=== PATIENT | female | born 1935 | race Caucasian/White ===

== ENCOUNTER 2020-11-19 15:59 | Outpatient (CLI) | payer MEDICARE, SELFPAY ==
--- NOTE | ~2020-11-19 | XR_ITS ---
EXAMINATION: XR shoulder LT min 2V DATE: 11/19/2020 16:39 INDICATION: Left shoulder pain. TECHNIQUE: 4 views of left shoulder were obtained. COMPARISON: Chest 2 views 03/05/2016 FINDINGS: Bone alignment is normal. No acute fracture. There is moderate osteoarthritis of glenohumer al joint and acromioclavicular joint. The visualized portions of the left lung demonstrate peripheral airspace and reticular opacities. IMPRESSION: 1. Polyarticular osteoarthritis. 2. Worsened lung disease, which may be pneumonia or chronic interstitial lung disease. Reviewed, dictated and finalized at location B. OTICS PROSTHETICS TECHNICIAN IMPRESSION: 1. Polyarticular osteoarthritis. 2. Worsened lung disease, which may be pneumonia or chronic interstitial lung d isease.
--- NOTE | ~2020-11-19 | XR_ITS ---
EXAMINATION: XR shoulder RT min 2V DATE: 11/19/2020 16:40 INDICATION: Right shoulder pain. TECHNIQUE: 4 views of right shoulder were obtained. COMPARISON: Chest 2 views 03/05/2016 FINDINGS: Bone alignment is normal. No fracture. There is moderate osteoarthritis of glenohumeral aleksey nt and acromioclavicular joint. The visualized portions of the right lung demonstrate peripheral reti cular and airspace opacities. IMPRESSION: 1. Polyarticular osteoarthritis. 2. Worsened lung disease, which may be pneumonia or chronic interstitial lung disease. Reviewed, dictated and finalized at location B. MARKETING ANALYST IMPRESSION: 1. Polyarticular osteoarthritis. 2. Worsened lung disease, which may be pneumonia or chronic interstitial lung d isease.
[2020-11-19 16:29] LABS: Basophils Absolute Auto 0.1 K/mm3 (0.0-0.1); Basophils Percent Auto 0.6 % (0.2-1.2); Eosinophils Absolute Auto 0.5 K/mm3 (0-0.3); Eosinophils Percent Auto 5.4 % (0-4.4); Hematocrit 39.1 % (37.0-47.0); Hemoglobin 13.2 g/dL (12.0-15.0); Immature Granulocyte Absolute 0.05 K/mm3 (0.00-0.031); Immature Granulocyte Percent A 0.5 % (0-0.5); Lymphocytes Absolute Auto 2.59 K/mm3 (0.9-3.2); Lymphocytes Percent Auto 27.6 % (18.3-44.2); Mean Corpuscular HGB Conc 33.8 g/dl (32-36); Mean Corpuscular Hemoglobin 29.5 pg (26-34); Mean Corpuscular Volume 87.3 fl (80-100); Mean Platelet Volume 9.1 fl (7.4-10.4); Monocytes Percent Auto 10.8 % (2.6-8.5); Neutrophils Absolute Auto 5.2 K/mm3 (1.3-6.7); Neutrophils Percent Auto 55.1 % (45.5-73.1); Platelet Count Result 351 k/mm3 (150-375); Red Blood Count 4.48 M/mm3 (4.2-5.4); Red Cell Distribution Width 13.6 % (11.5-14.5); White Blood Count 9.4 K/mm3 (4.5-10.0)
[2020-11-19 16:43] LABS: Anion Gap 9 mmol/L (8-16); Blood Urea Nitrogen 16 mg/dL (7-17); CRP 3.5 mg/dL (<1.0); Calcium 9.6 mg/dL (8.4-10.2); Carbon Dioxide 30 mmol/L (22-30); Chloride 93 mmol/L (98-107); Estimated Glomerular Filt Rate > 60; Glucose 103 mg/dL (65-105); Potassium 4.6 mmol/L (3.4-5.0); Sodium 132 mmol/L (137-145)
[2020-11-19 16:44] LABS: Rheumatoid Factor < 12.0 IU/ML (<12)
[2020-11-19 16:52] LABS: Erythrocyte Sedimentation Rate 30 mm/hr (0-20)
[2020-11-25 09:26] LABS: Anti Cyclic Citrullinated Pept <16 Units (<20)
== END 2020-11-19 16:00 | disposition home or self-care (01) ==
LOC: ANHLAB 16:07
PROVIDERS: Family Provider Internal Medicine; PCP Internal Medicine; Visit Provider Internal Medicine
DX: M25.531 Pain in right wrist (principal); M25.532 Pain in left wrist; M54.2 Cervicalgia; M89.49 Other hypertrophic osteoarthropathy, multiple sites; M19.011 Primary osteoarthritis, right shoulder; J98.4 Other disorders of lung; M19.012 Primary osteoarthritis, left shoulder
CPT/HCPCS: 36415; 73030; 80048; 85025; 85652; 86140; 86200; 86430

== ENCOUNTER 2020-11-21 16:16 | Outpatient (CLI) | payer MEDICARE, SELFPAY ==
--- NOTE | ~2020-11-21 | XR_ITS ---
EXAMINATION: XR chest 2V DATE: 11/21/2020 16:47 INDICATION: Abnormal shoulder radiographs demonstrating lung disease on 11/19/2020 TECHNIQUE: PA and lateral views of the chest are obtained. COMPARISON: 03/15/2016, 11/19/2020 FINDINGS: There are reticular and airspace opacities throughout the lungs with more focal consolidati on seen in the lung bases. There are small pleural effusions. No pneumothorax is identified. Cardiome gerri is noted. There is moderate thoracic spondylosis. IMPRESSION: 1. Diffuse lung disease which could reflect pneumonia and/or chronic interstitial lung disease and/or atelectasis. 2. Small pleural effusions. Reviewed, dictated and finalized at location A. OYEE SERVICE OFFICER IMPRESSION: 1. Diffuse lung disease which could reflect pneumonia and/or chronic interstiti al lung disease and/or atelectasis. 2. Small pleural effusions.
== END 2020-11-21 16:17 | disposition home or self-care (01) ==
PROVIDERS: Family Provider Internal Medicine; PCP Internal Medicine; Visit Provider Internal Medicine
DX: R91.8 Other nonspecific abnormal finding of lung field (principal); J90 Pleural effusion, not elsewhere classified
CPT/HCPCS: 71046

== ENCOUNTER 2020-11-27 14:40 | Outpatient (CLI) | payer MEDICARE, SELFPAY ==
--- NOTE | ~2020-11-27 | XR_ITS ---
EXAMINATION: XR wrist LT 2V, XR wrist RT 2V DATE: 11/27/2020 14:57 INDICATION: Right wrist pain TECHNIQUE: 1. Posteroanterior and lateral views of the left wrist were obtained. 2. Posteroanterior and lateral views of the right wrist were obtained. COMPARISON: none FINDINGS: Normal alignment at the bilateral wrists and visualized hand. No fractures. Polyarticular osteoarthri tis, moderate severity at the bilateral first carpometacarpal joints and mild at the bilateral trisca phe, midcarpal and multiple bilateral metacarpophalangeal and interphalangeal joints. IMPRESSION: 1. Polyarticular osteoarthritis in the bilateral hands and wrists, moderate severity at the first car pal metacarpal joints. Reviewed, dictated and finalized at location B. RAL STORE MANAGER IMPRESSION: 1. Polyarticular osteoarthritis in the bilateral hands and wrists, moderate sev erity at the first carpal metacarpal joints.
== END 2020-11-27 14:41 | disposition home or self-care (01) ==
PROVIDERS: Family Provider Internal Medicine; PCP Internal Medicine; Visit Provider Internal Medicine
DX: M89.49 Other hypertrophic osteoarthropathy, multiple sites (principal); M19.031 Primary osteoarthritis, right wrist; M19.032 Primary osteoarthritis, left wrist
CPT/HCPCS: 73100

== ENCOUNTER 2020-12-01 11:04 | Outpatient (CLI) | payer MEDICARE, SELFPAY ==
--- NOTE | ~2020-12-01 | CT_ITS ---
EXAMINATION: CT chest high resolution [facility] DATE: 12/01/2020 11:29 INDICATION: Interstitial pulmonary disease. TECHNIQUE: Computed tomography (CT) of the chest was performed without intravenous contrast. The dose -length product was 147.16 mGy-cm. Automated exposure control and iterative reconstruction technique were employed. COMPARISON: Chest x-ray dated 11/21/2020 FINDINGS: Cardiomegaly. There is mild mediastinal lymphadenopathy, likely reactive. There is atherosc lerosis of the aorta and coronary arteries. No significant pleural or pericardial effusion. There are coarse interstitial changes of the lung periphery with areas of interlobular septal thicken ing, honeycombing and traction bronchiectasis, consistent with chronic interstitial lung disease. The re is a 12 mm perifissural nodule, image 53. There are smaller 2-3 mm nodules in the lung apices. The re are small pleural-based nodules of the right mid lung, images 64-67. The largest measures approxim ately 10 x 5 mm axial dimension. IMPRESSION: 1. Lung Rads 4A, suspicious: Three-month low-dose CT, PET/CT is recommended. 2: Chronic interstitial lung disease with a pattern consistent with usual interstitial pneumonia. Reviewed, dictated and finalized at location A. NG CLOTH CUTTER IMPRESSION: 1. Lung Rads 4A, suspicious: Three-month low-dose CT, PET/CT is recommended. 2: Chronic interstitial lung disease with a pattern consistent with usual inter stitial pneumonia.
== END 2020-12-01 11:05 | disposition home or self-care (01) ==
PROVIDERS: Family Provider Internal Medicine; PCP Internal Medicine; Visit Provider Internal Medicine
DX: J84.9 Interstitial pulmonary disease, unspecified (principal)
CPT/HCPCS: 71250

== ENCOUNTER 2021-01-02 09:07 | Outpatient (CLI) | payer MEDICARE, SELFPAY ==
--- NOTE | 2021-01-02 12:29 | P.PCNPFT_ITS ---
PFT Interpretation This is a pulmonary function test with pre and post-bronchodilator spirometry, plethysmography and diffusing capacity. The test was performed and results interpreted in accordance with the 2019 and 2005 ATS/ERS Task Force guidelines respectively using the Global Lung Function Initiative-2012 reference equations. Patient demonstrated good effort and c ooperation. Reproducibility criteria were met. The quality of the pre bronchodilator spirometry maneuver was Grade A and post bronchodilator spirometry maneuver was Grade A. Findings: Spirometry: the contour of the inspiratory and expiratory flow tracing are normal. The pre bronchodilator FVC is 1.68 L, 76% predicted. The pre bronchodilator FEV1 is 1.38 L, 82% predicted. The FEV1: FVC ratio was 82%. The post bronchodilator FVC is 1.60 L, representing a 5% decrease. The post bronchodilator FEV1 is 1.28 L, representing a 7% decrease. Plethysmography: The absolute total lung capacity is 2.36 L, 51% predicted. The functional residual capacity is 1.11 L, 42% predicted. The residual volume is 0.68 L, 29% predicted. Diffusing capacity: The absolute diffusion capacity is 10.0, 56% predicted. The diffusing capacity corrected for alveolar volume is 4.08, 97% predicted. Impression: There is a mild restrictive ventilatory abnormality with a normal FEV1. The spirometry is normal without evidence of an obstructive abnormality. There is no significant improvement after inhaling a single dose of albuterol. The absolute diffusing capacity is moderately decreased and normalizes when corrected for alveolar volume. There are no prior studies for comparison
== END 2021-01-02 09:08 | disposition home or self-care (01) ==
PROVIDERS: PCP Internal Medicine; Visit Provider Internal Medicine Pulmonary Disease
DX: J84.9 Interstitial pulmonary disease, unspecified (principal); R94.2 Abnormal results of pulmonary function studies
CPT/HCPCS: 94060; 94726; 94729

== ENCOUNTER 2021-03-04 09:34 | Outpatient (CLI) | payer MEDICARE, SELFPAY ==
--- NOTE | ~2021-03-04 | CT_ITS ---
EXAMINATION: CT diagnostic chest wo con DATE: 03/04/2021 09:57 INDICATION: Interstitial pulmonary disease, unspecified TECHNIQUE: Computed tomography (CT) of the chest was performed without intravenous contrast. The dose -length product (DLP) was 113.88 mGy-cm. Automated exposure control and iterative reconstruction tech [employer] were employed. COMPARISON: 12/01/2020 FINDINGS: Again seen are coarse reticular subpleural groundglass opacities with a lower lung zone pre dominance. There is bronchiectasis of the lower lobes. No honeycombing is identified. The previously described right lung nodule is seen in association with an accessory fissure and likely most likely a fissural lymph node. Stable subpleural nodules in the right middle lobe likely reflect atelectasis o r old granulomatous disease. Cardiomegaly is noted. There is unchanged mild mediastinal lymphadenopat hy. Calcified coronary artery atherosclerosis is noted. There is mild thoracic spondylosis. IMPRESSION: 1. Chronic interstitial lung disease in a pattern of nonspecific interstitial pneumonia (NSIP). 2. Right lower lobe nodule in association with an accessory fissure, most consistent with a fissural lymph node. Reviewed, dictated and finalized at location A. IMPRESSION: 1. Chronic interstitial lung disease in a pattern of nonspecific interstitial p neumonia (NSIP). 2. Right lower lobe nodule in association with an accessory fissure, most consi stent with a fissural lymph node.
== END 2021-03-04 09:35 | disposition home or self-care (01) ==
PROVIDERS: PCP Internal Medicine; Visit Provider Internal Medicine Pulmonary Disease
DX: J98.4 Other disorders of lung (principal); R91.8 Other nonspecific abnormal finding of lung field; J84.9 Interstitial pulmonary disease, unspecified
CPT/HCPCS: 71250

== ENCOUNTER 2021-03-14 08:38 | Outpatient (CLI) | payer MEDICARE, SELFPAY ==
--- NOTE | ~2021-03-14 | MR_ITS ---
EXAMINATION: MR wrist RT wo/w con DATE: 03/14/2021 10:11 INDICATION: Right wrist pain. TECHNIQUE: Magnetic resonance imaging (MRI) of the wrist was performed without and with 14 mL MultiHa nce intravenous contrast. Sequences included axial, coronal, and sagittal T1-weighted FSE and T2-weig hted FS FSE, axial T1-weighted FS FSE, and postcontrast axial and coronal T1-weighted FS FSE. COMPARISON: Right wrist radiographs 11/27/2020 FINDINGS: Intrinsic ligaments: There is a tear of the dorsal and proximal components of the scapholunate ligament. There is a tear o f the proximal portion of lunotriquetral ligament. Triangular fibrocartilage complex (TFCC): There is a full-thickness tear of the triangular fibrocartilage. Extensor wrist: There is mild tendinopathy of the abductor pollicis longus and extensor pollicis brevis tendons. Ther e is a longitudinal split tear of the extensor carpi ulnaris tendon. There is enhancing tenosynovitis involving all of the extensor compartments. Flexor wrist: The flexor tendons are normal. The median nerve is normal. Guyon's canal: The ulnar nerve is normal. Bones/other: There is mild osteoarthritis of the capitate-hamate joint and moderate osteoarthritis of the trapezoi d-capitate joint. There is severe osteoarthritis of first carpometacarpal joint and distal radioulnar joint. There is a small effusion of the dorsal radioulnar joint. There is widespread enhancing synov itis involving the distal radioulnar joint, radiocarpal compartment, midcarpal compartment, and carpo metacarpal joints. IMPRESSION: 1. Widespread synovitis involving the joints and tendon sheaths. Longitudinal split tear of the exten sor carpi ulnaris tendon. Small effusion of distal radioulnar joint. 2. Polyarticular osteoarthritis. 3. Full-thickness tear of triangular fibrocartilage. 4. Tears of the scapholunate ligament and lunotriquetral ligament. Reviewed, dictated and finalized at location A. IMPRESSION: 1. Widespread synovitis involving the joints and tendon sheaths. Longitudinal s plit tear of the extensor carpi ulnaris tendon. Small effusion of distal radiou lnar joint. 2. Polyarticular osteoarthritis. 3. Full-thickness tear of triangular fibrocartilage. 4. Tears of the scapholunate ligament and lunotriquetral ligament.
[2021-03-14 09:46] LABS: Estimated Glomerular Filt Rate > 60
== END 2021-03-14 08:39 | disposition home or self-care (01) ==
PROVIDERS: PCP Internal Medicine
DX: M25.539 Pain in unspecified wrist (principal); R22.30 Localized swelling, mass and lump, unspecified upper limb; M65.88 Other synovitis and tenosynovitis, other site; M19.031 Primary osteoarthritis, right wrist; S63.591A Other specified sprain of right wrist, initial encounter
CPT/HCPCS: 73223; A9577

== ENCOUNTER 2021-04-06 11:32 | Outpatient (CLI) | payer MEDICARE, SELFPAY ==
--- NOTE | ~2021-04-06 | XR_ITS ---
EXAMINATION: XR cervical spine min 6V EXAM DATE: 04/06/2021 11:59 INDICATION: Cervicalgia, bilateral neck pain. TECHNIQUE: Cervical spine frontal, lateral, lateral swimmers, and open-mouth odontoid projections. Additional lateral flexion and lateral extension projections obtained. There are no prior studies for comparison. FINDINGS: The odontoid process is intact. The lateral masses of C1 line up with C2. There is 2 mm a nterolisthesis C3 on C4 and C5 on C6 on the neutral and flexion projections, appears to normalize on the extension projection. Moderate loss of the C6-7 disc height, mild disc disease at the other cervi mandeep levels. Prevertebral soft tissue and pre-dens space are within normal limits. There is advanced m id cervical facet arthropathy and at least moderate midcervical uncovertebral joint arthropathy. Ther e are no acute fractures identified. Lung apices unremarkable. IMPRESSION: Advanced cervical arthropathy. Minimal anterolistheses C3 on C4 and C5 on C6 on 2 out of 3 lateral projections. Reviewed, dictated and finalized at location A. IMPRESSION: Advanced cervical arthropathy. Minimal anterolistheses C3 on C4 an d C5 on C6 on 2 out of 3 lateral projections.
== END 2021-04-06 11:33 | disposition home or self-care (01) ==
PROVIDERS: PCP Internal Medicine; Visit Provider Internal Medicine
DX: M54.2 Cervicalgia (principal)
CPT/HCPCS: 72052

== ENCOUNTER 2021-05-06 08:01 | Outpatient (CLI) | payer MEDICARE, SELFPAY ==
--- NOTE | ~2021-05-06 | NM_ITS ---
EXAMINATION: NM kerrie stress w perfusion DATE: 05/06/2021 10:41 INDICATION: Dyspnea on exertion. TECHNIQUE: Rest images were obtained following intravenous administration of 10.88 mCi Tc99m tetrofos min (Myoview). The patient was infused intravenously with Lexiscan (regadenoson). Then, 31.9 mCi Tc99 m tetrofosmin (Myoview) was administered intravenously, and stress images were obtained. Data was rec onstructed into short axis and horizontal and vertical long axis SPECT images. Gated SPECT images wer e also obtained. COMPARISON: chest CT 03/04/21 FINDINGS: There is no definite reversible or fixed perfusion abnormality to suggest ischemia or infar ction. There is no segmental wall motion abnormality. Left ventricular ejection fraction measures 6 7%. IMPRESSION: 1. No definite ischemia or infarct. 2. Normal left ventricular ejection fraction measuring 67%. Reviewed, dictated and finalized at location A.
--- NOTE | 2021-05-06 08:42 | EST_ITS ---
Patient Info Name: Leti Kelly Age: 86 years : 1935 Gender: Female Ht: 61 in Wt: 157 lbs BSA: 1.78 m2 HR: 94 bpm BP: 178 / 73 mmHg Heart Rhythm: Sinus Rhythm Exam Date: 05/06/2021 9:20 AM Exam Location: [facility] Stress Patient Status: Outpatient Admit Date: 05/06/2021 Staff Ordering Physician: Christiano Cesar MD Attending Provider: Christiano Cesar MD Exercise Technologist: Geneva Carlisle CT Exercise Physician: Lee Zee DO Exam Type: CA stress kerrie w NM Summary 1. 1. Negative lexiscan stress test for ischemic ST changes by ECG criteria. 2. 2. Baseline hypertension. 3. 3. Nuclear scan to follow and will be reported separately. Please correlate with it. 4. 4. Patient informed of the above results. Protocol: Lexiscan Stress ECG Details Stage: REST Duration (min): 1 min : 30 sec HR (bpm): 94 SBP (mmHg): 178 DBP (mmHg): 63 Stage: REST Duration (min): 19 min : 48 sec HR (bpm): 95 SBP (mmHg): 178 DBP (mmHg): 63 Stage: STAGE 1 Duration (min): 0 min : 59 sec HR (bpm): 106 SBP (mmHg): 201 DBP (mmHg): 65 Stage: RECOVERY Duration (min): 1 min : 0 sec HR (bpm): 104 SBP (mmHg): 201 DBP (mmHg): 65 Stage: RECOVERY Duration (min): 2 min : 0 sec HR (bpm): 99 SBP (mmHg): 201 DBP (mmHg): 65 Stage: RECOVERY Duration (min): 3 min : 0 sec HR (bpm): 100 SBP (mmHg): 228 DBP (mmHg): 73 Stage: RECOVERY Duration (min): 4 min : 0 sec HR (bpm): 101 SBP (mmHg): 228 DBP (mmHg): 73 Stage: RECOVERY Duration (min): 5 min : 0 sec HR (bpm): 98 SBP (mmHg): 228 DBP (mmHg): 73 Stage: RECOVERY Duration (min): 5 min : 20 sec HR (bpm): 98 SBP (mmHg): 209 DBP (mmHg): 67 Rest HR: 95 bpm Peak HR: 106 bpm Rest Sys BP: 178 mmHg Peak Sys BP: 200 mmHg Max Pred HR: 136 bpm % Max Pred HR: 78 % Target HR: 116 bpm Max RPP: 21,200 bpm*mmHg Termination Reason: Completed protocol Cardiac Symptoms: Shortness of breath Total Time: 1 min : 0 sec Rest Rosa BP: 63 mmHg Peak Rosa BP: 73 mmHg Total Dose: 0.4 mg Resting ECG Sinus rhythm, low voltage in precordial leads, PRWP. Stress ECG No ST changes. Arrhythmias None. Report Signatures
== END 2021-05-06 08:02 | disposition home or self-care (01) ==
LOC: ANHCARD 08:05
PROVIDERS: PCP Internal Medicine; Visit Provider Internal Medicine
DX: R06.00 Dyspnea, unspecified (principal); R06.02 Shortness of breath; I10 Essential (primary) hypertension
CPT/HCPCS: 78452; 93017; A9502; J2785

== ENCOUNTER 2021-06-09 14:00 | Outpatient (CLI) | payer MEDICARE, SELFPAY ==
--- NOTE | 2021-06-09 | ECHO_ITS ---
Patient Info Name: Leti Kelly Age: 86 years : 1935 Gender: Female Ht: 61 in Wt: 169 lbs BSA: 1.85 m2 HR: 87 bpm BP: 156 / 68 mmHg Heart Rhythm: Sinus Rhythm Technical Quality: Fair Exam Date: 06/09/2021 2:32 PM Exam Location: [facility] Patient Status: Outpatient Admit Date: 06/09/2021 Staff Ordering Physician: Christiano Cesar MD Tissue Coordinator: Negar Gonzalez RDCS Attending Provider: Christiano Cesar MD Referring Physician: Tali DUGGAN; Exam Type: CA echo doppler color flow Study Info Indications I10 - Essential (primary) hypertension R06.02 - Shortness of breath Complete two-dimensional, color flow and Doppler transthoracic echocardiogram is performed. Summary 1. Complete two-dimensional, color flow and Doppler transthoracic echocardiogram is performed. 2. Left ventricular chamber dimension is normal. 3. Left ventricular systolic function is normal, estimated at 65-70%. 4. There is mildly increased left ventricular wall thickness. 5. The left ventricular diastolic function is grade I diastolic dysfunction. 6. E/e' 16 is elevated. 7. Left atrial chamber dimension is moderately enlarged. 8. There is moderate aortic valve sclerosis. 9. There is mild aortic valve stenosis with a peak velocity of 231 cm/s, mean gradient of 9 mmHg, and aortic valve area of 1.8 cm2. 10. There is mild to moderate aortic valve regurgitation. 11. The mitral valve has mildly calcified annulus. 12. There is mild mitral valve regurgitation. 13. There is mild tricuspid valve regurgitation. 14. No pulmonary hypertension, estimated pulmonary arterial systolic pressure is 33 mmHg. 15. There is trivial pericardial effusion. Left Ventricle E/e' 16 is elevated. Left ventricular chamber dimension is normal. Left ventricular systolic function is normal, estimated at 65-70%. There is mildly increased left ventricular wall thickness. The left ventricular diastolic function is grade I diastolic dysfunction. Right Ventricle Right ventricular chamber dimension is normal. Right ventricular systolic function is normal. Left Atria Left atrial chamber dimension is moderately enlarged. Right Atria Right atrial chamber dimension is normal. Aortic Valve The aortic valve is trileaflet. There is moderate aortic valve sclerosis. There is mild aortic valve stenosis with a peak velocity of 231 cm/s, mean gradient of 9 mmHg, and aortic valve area of 1.8 cm2. There is mild to moderate aortic valve regurgitation. Pulmonic Valve There is no pulmonic regurgitation. Mitral Valve The mitral valve has mildly calcified annulus. There is no mitral valve stenosis. There is mild mitral valve regurgitation. Tricuspid Valve There is mild tricuspid valve regurgitation. No pulmonary hypertension, estimated pulmonary arterial systolic pressure is 33 mmHg. Pericardium/Pleural There is trivial pericardial effusion. Inferior Vena Cava Normal inferior vena cava with >50% collapse upon inspiration consistent with normal right atrial pressure, 5 mmHg. Aorta The aortic root size at the sinus of Valsalva is normal. Left Ventricular Outflow Tract Name Value Normal LVOT 2D LVOT Diameter 1.9 cm
--- NOTE | ~2021-06-09 | XR_ITS ---
EXAMINATION: XR barium swallow modified DATE: 06/09/2021 15:38 INDICATION: Dysphagia. Cough. TECHNIQUE: The patient was given barium-containing material of multiple consistencies to swallow by mary early speech pathologist while I performed fluoroscopy. Dose-area product was 1.542 Gy-cm2. 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 Please refer to the speech therapy report for spec ific recommendations. Reviewed, dictated and finalized at Location A. Reviewed, dictated and finalized at location A. IMPRESSION: Modified esophagram findings as above. Please refer to the speech t herapy report for specific recommendations.
--- NOTE | 2021-06-11 15:27 | STOPEVAL ---
MODIFIED BARIUM SWALLOW EVALUATION: Thank you for referring Leti Kelly to [facility] [place].? Attending Provider: Christiano Cesar MD Outpatient Past Medical History Past Medical History Source of Past Medical History Patient Respiratory History Hx Bronchitis Yes: reports she gets it every year Prior Level of Function Medications Home Meds (Include: OTC, RX, Vitamins, takes BP meds, thyroid med, Herbals, Dose, Route,and Frequency) and a cholesterol medication Query Text:Home Med Entries Will No Longer Recall From Past Visits. Home Meds Must Be Re-entered With Each Visit. Prior Swallow Level Prior Intake Method Oral Prior Diet Regular (Level 7 Diet) Prior Liquid Consistency Thin (Level 0 Diet) Prior Cognition/Communication Prior Communication Level No Impairment Pain Assessment Timing of Pain Assessment Timing of Pain Assessment Assessment Self Report Self Report Pain Level 0 Pain Score Pain Score 0: Self Report Modified Barium Swallow Evaluation Recent Swallowing History Reports Dysphagia Yes: thin liquids only Duration of Dysphagia x several years Other Factors Impacting Dysphagia None History of Pneumonia No Reported Difficult Consistencies Thin Liquids Intake Method Prior to Swallow Oral Evaluation Diet Prior to Swallow Evaluation Regular, Level 7 Liquid Consistency Prior to Swallow Thin (0) Evaluation Consistency Solid Consistency Method of Presentation Spoon Oral Preparatory Symptoms None Oral Phase Symptoms None Pharyngeal Phase Symptoms Within Functional Limits,Bony Protuberance Severity of Vallecular Residue None - 0% No Residue Severity of Pyriform Sinus Residue None - 0% No Residue 8 Point Laryngeal Penetration-Aspiration Material Does Not Enter Airway Scale Cervical/Esophageal Symptoms None Mixed Consistency Method of Presentation Spoon Oral Preparatory Symptoms None Oral Phase Symptoms None Pharyngeal Phase Symptoms Within Functional Limits,Bony Protuberance Severity of Vallecular Residue None - 0% No Residue Severity of Pyriform Sinus Residue None - 0% No Residue 8 Point Laryngeal Penetration-Aspiration Material Does Not Enter Airway Scale Cervical/Esophageal Symptoms None Pureed Consistency Method of Presentation Spoon Oral Preparatory Symptoms None Oral Phase Symptoms None Pharyngeal Phase Symptoms None,Bony Protuberance Severity of Vallecular Residue None - 0% No Residue Severity of Pyriform Sinus Residue None - 0% No Residue 8 Point Laryngeal Penetration-Aspiration Material Does Not Enter Airway Scale Ce
== END 2021-06-09 14:01 | disposition home or self-care (01) ==
PROVIDERS: PCP Internal Medicine; Visit Provider Internal Medicine
DX: R05 Cough (principal); R13.10 Dysphagia, unspecified; R06.02 Shortness of breath; I34.0 Nonrheumatic mitral (valve) insufficiency; I35.1 Nonrheumatic aortic (valve) insufficiency; I36.1 Nonrheumatic tricuspid (valve) insufficiency
CPT/HCPCS: 92611; 93306

== ENCOUNTER 2021-08-04 00:41 | Day surgery (SDC) | payer MEDICARE, SELFPAY ==
[2021-07-22 14:29] VITALS: BMI 29.1
[2021-08-04 07:19] VITALS: BP 156/50; PULSE 85; RESP 17; TEMP 36.1; O2SAT 97
[2021-08-04 07:45] LABS: Glucose Point of Care 148 mg/dl (65-105)
[2021-08-04] MEDS: LACTATED RINGERS 1,000 ML 150 ML IV CONT (07:50)
--- NOTE | 2021-08-04 08:13 | WPDGICN ---
Assessment and Plan Assessment and plan (1) Dysphagia: Qualifiers: Dysphagia type: unspecified Qualified Code(s): R13.10 - Dysphagia, unspecified Code(s): R13.10 - Dysphagia, unspecified Status: Acute Assessment and Plan: Patient presents complains of cough when swallowing. She sometimes will cough independent of swallowing. Barium swallow suggest spurring in the cervical spine possible ring or cricopharyngeal dysfunction. Plan is for EGD to assess more thoroughly. Further recommendations will be given after EGD. (2) Interstitial lung disease: Code(s): J84.9 - Interstitial pulmonary disease, unspecified Status: Acute GI Consult Note Consult date/time: 08/04/21 08:13 HPI: Leti Kelly is a 86 year old female Presents for EGD because of difficulty swallowing. Patient also has a cough. Often the cough will occur after eating. Modified barium swallow suggested cricopharyngeal dysfunction and cervical spurs at his C5 cervical area. Patient recently was diagnosed with interstitial lung disease. She has not begun any specific therapy. She is quite short of breath on exertion she presents today for EGD to evaluate her chronic cough and abnormality seen on barium swallow. Review of Systems Review of Systems: All systems reviewed & are unremarkable except as noted in HPI and below PMFSH Past Medical History Medical History (Updated 08/04/21 @ 08:15 by Gautam Iniguez MD) Arthritis Benign essential hypertension BMI 28.0-28.9,adult BMI 29.0-29.9,adult BMI 30.0-30.9,adult BMI 31.0-31.9,adult Cervicalgia Chronic pain of right hand Cognitive changes Cough Degenerative joint disease of hand, right Degenerative joint disease of left hand Diarrhea DJD (degenerative joint disease), multiple sites DM type 2 (diabetes mellitus, type 2) SCHNEIDER (dyspnea on exertion) Dysphagia Elevated WBCs Encounter for Medicare annual wellness exam Encounter for routine adult health examination with abnormal findings Encounter for routine adult health examination without abnormal findings Fatigue Follow up History of IBS Hyperlipidemia Hyperlipidemia Hypersomnia Hyponatremia Hypothyroidism (acquired) Interstitial lung disease Leukocytosis Nausea On director long term care drug therapy Opacity of lung on imaging study Pre-diabetes Pulmonary nodules Sinus drainage SOB (shortness of breath) Swelling of right hand Vitamin D deficiency Wrist pain Family History Family History (Updated 07/28/21 @ 09:58 by Ree Leach CMA) Mother Family history of malignant neoplasm Family history of malignant neoplasm of stomach Sibling Family history of malignant neoplasm of breast in first degree relative Father Family history of heart disease in male family member before age 55 Hypertension Depression Social History Social History Smoking status: Former smoker (1 ppd age [age]) Smoking end date: 10/31/76 Alcohol intake: never Substance use: never Substance use type: does not use Living arrangements: with family Spiritual care concerns: No Meds Home Medications and Allergies Home Medications Medication Instructions Recorded Confirmed Type omega-3 fatty acids 1,000 mg 2,000 mg PO BID cap 10/09/19 07/22/21 History capsule verapamil 240 mg tablet,extended 240 mg PO Q12H #180 tablet 07/30/20 07/22/21 Rx release valsartan 320 See Rx Instructions .ROUTE 09/29/20 07/22/21 Rx mg-hydrochlorothiazide 12.5 mg .COMPLEX #90 tablet tablet lifitegrast 5 % eye drops in a 1 drp OPHTHALMIC (EYE) BID 11/25/20 07/22/21 History dropperette clonidine HCl 0.1 mg tablet 0.1 mg PO .HS #90 tablet 01/27/21 07/22/21 Rx atorvastatin 20 mg tablet 20 mg PO DAILY #90 tablet 04/01/21 07/22/21 Rx levothyroxine 112 mcg tablet 112 mcg PO DAILY #90 tablet 04/09/21 07/22/21 Rx ferrous sulfate, dried 159 mg (45 159 mg PO BID 07/08/21
--- NOTE | 2021-08-04 08:23 | WPDANESEPPF ---
Anes - Initial Pre Proc Eval Procedure: Operation Date: 08/04/21 08:30 Proposed Procedures p Esophagogastroduodenoscopy - Gautam Iniguez MD Date/Time: 08/04/21 08:23 Surgeon: Gautam Iniguez MD Pre Op Diagnosis: dysphagia Patient Data Age: 86 Gender: F Height: 1.55 m Weight: 68.7 kg Last Vital Signs Temp 97 F L 08/04/21 07:19 Pulse 85 08/04/21 07:19 Resp 17 08/04/21 07:19 BP 156/50 H 08/04/21 07:19 Pulse Ox 97 08/04/21 07:19 Allergies Allergy/AdvReac Type Severity Reaction Status Date / Time celecoxib [From Celebrex] AdvReac Mild Abdominal Verified 08/04/21 07:32 Pain ibuprofen AdvReac Unknown Swelling Verified 08/04/21 07:32 Penicillins AdvReac Unknown Swelling Verified 08/04/21 07:39 Sulfa (Sulfonamide AdvReac Unknown Swelling Verified 08/04/21 07:39 Antibiotics) Home Medications Medication Instructions Recorded Confirmed Type omega-3 fatty acids 1,000 mg 2,000 mg PO BID cap 10/09/19 07/22/21 History capsule verapamil 240 mg tablet,extended 240 mg PO Q12H #180 tablet 07/30/20 07/22/21 Rx release valsartan 320 See Rx Instructions .ROUTE 09/29/20 07/22/21 Rx mg-hydrochlorothiazide 12.5 mg .COMPLEX #90 tablet tablet lifitegrast 5 % eye drops in a 1 drp OPHTHALMIC (EYE) BID 11/25/20 07/22/21 History dropperette clonidine HCl 0.1 mg tablet 0.1 mg PO .HS #90 tablet 01/27/21 07/22/21 Rx atorvastatin 20 mg tablet 20 mg PO DAILY #90 tablet 04/01/21 07/22/21 Rx levothyroxine 112 mcg tablet 112 mcg PO DAILY #90 tablet 04/09/21 07/22/21 Rx ferrous sulfate, dried 159 mg (45 159 mg PO BID 07/08/21 07/22/21 History mg iron) tablet,extended release metformin 500 mg tablet 500 mg PO BID #180 tablet 07/29/21 Rx diphenoxylate-atropine 2.5 1 tablet PO BID PRN #8 tablet 07/30/21 Rx mg-0.025 mg tablet Laboratory Tests 08/04/21 07:41 POC Capillary Glucose 148 mg/dl H mg/dl (65-105) Patient hx anesthesia problems: none Family hx anesthesia problems: none Results Review: All pre-operative results and documents have been reviewed as part of the pre-operative evaluation. [facility] Past Medical History Medical History (Updated 08/04/21 @ 08:15 by Gautam Iniguez MD) Arthritis Benign essential hypertension BMI 28.0-28.9,adult BMI 29.0-29.9,adult BMI 30.0-30.9,adult BMI 31.0-31.9,adult Cervicalgia Chronic pain of right hand Cognitive changes Cough Degenerative joint disease of hand, right Degenerative joint disease of left hand Diarrhea DJD (degenerative joint disease), multiple sites DM type 2 (diabetes mellitus, type 2) SCHNEIDER (dyspnea on exertion) Dysphagia Elevated WBCs Encounter for Medicare annual wellness exam Encounter for routine adult health examination with abnormal findings Encounter for routine adult health examination without abnormal findings Fatigue Follow up History of IBS Hyperlipidemia Hyperlipidemia Hypersomnia Hyponatremia Hypothyroidism (acquired) Interstitial lung disease Leukocytosis Nausea On intermediate manager drug therapy Opacity of lung on imaging study Pre-diabetes Pulmonary nodules Sinus drainage SOB (shortness of breath) Swelling of right hand Vitamin D deficiency Wrist pain Family History Family History (Updated 07/28/21 @ 09:58 by Ree Leach [facility]) Mother Family history of malignant neoplasm Family history of malignant neoplasm of stomach Sibling Family history of malignant neoplasm of breast in first degree relative Father Family history of heart disease in male family member before age 55 Hypertension Depression Social History Social History Smoking status: Former smoker (1 ppd age [age]) Smoking end date: 10/31/76 Alcohol intake: never Substance use: never Substance use type: does not use Living arrangements: with family Spiritual care concerns: No Anes - Eval Final PreProcedure Day of Procedure 08/04/21 08:23
[2021-08-04 08:57] VITALS: BP 144/55; PULSE 70; RESP 21; O2SAT 100
[2021-08-04 09:07] VITALS: BP 129/57; PULSE 72; RESP 24; O2SAT 99
[2021-08-04 09:17] VITALS: BP 146/64; PULSE 70; RESP 22; O2SAT 97
== END 2021-08-04 09:29 | disposition home or self-care (01) ==
PROVIDERS: PCP Internal Medicine; Visit Provider Internal Medicine Gastroenterology
PROC: 0DJ08ZZ Inspection of Upper Intestinal Tract, Via Natural or Artificial Opening Endoscopic (ICD-10-PCS; CPT 43235; principal; 2021-08-04 08:30)
DX: R13.10 Dysphagia, unspecified (principal); R05.9 Cough, unspecified; J84.9 Interstitial pulmonary disease, unspecified; I10 Essential (primary) hypertension; E11.9 Type 2 diabetes mellitus without complications; E78.5 Hyperlipidemia, unspecified; E03.9 Hypothyroidism, unspecified; E55.9 Vitamin D deficiency, unspecified; M19.90 Unspecified osteoarthritis, unspecified site; Z87.891 Personal history of nicotine dependence; Z79.84 Long term (current) use of oral hypoglycemic drugs
CPT/HCPCS: 43450; 43235; 82948; J7120

== ENCOUNTER 2021-09-09 10:16 | Outpatient (CLI) | payer MEDICARE, SELFPAY ==
--- NOTE | ~2021-09-09 | CT_ITS ---
EXAMINATION: CT chest high resolution wo co DATE: 09/09/2021 10:42 INDICATION: Interstitial lung disease, prior smoker TECHNIQUE: Computed tomography (CT) of the chest was performed without intravenous contrast. The dose -length product (DLP) was 118.50 mGy-cm. Automated exposure control and iterative reconstruction tech nique were employed. COMPARISON: 03/04/2021 FINDINGS: There are widespread coarse, reticular subpleural groundglass opacities with slight interva l worsening since the comparison examination. No honeycombing is identified. There is bronchiectasis of the lower lobes. Stable subpleural nodules of the right middle lobe are again noted, likely atelec tasis or old granulomatous disease. There is cardiomegaly. There is calcified coronary artery atheros clerosis. Chronic mild mediastinal lymphadenopathy is noted. Trace pleural effusions are present. The re is no pneumothorax. There is mild thoracic spondylosis. IMPRESSION: 1. Chronic interstitial lung disease in a pattern of nonspecific interstitial pneumonia (NSIP) with s light interval worsening. Reviewed, dictated and finalized at location B. [employer] IMPRESSION: 1. Chronic interstitial lung disease in a pattern of nonspecific interstitial p neumonia (NSIP) with slight interval worsening.
== END 2021-09-09 10:17 | disposition home or self-care (01) ==
PROVIDERS: PCP Internal Medicine; Visit Provider Internal Medicine Critical Care Medicine
DX: J84.9 Interstitial pulmonary disease, unspecified (principal)
CPT/HCPCS: 71250

== ENCOUNTER 2021-09-30 10:05 | Outpatient (CLI) | payer MEDICARE, SELFPAY ==
[2021-09-30 10:15] VITALS: PULSE 88; O2SAT 94
[2021-09-30 10:20] VITALS: PULSE 93; O2SAT 86
[2021-09-30 10:25] VITALS: PULSE 93; O2SAT 94
[2021-09-30 10:30] VITALS: PULSE 89; O2SAT 95
--- NOTE | 2021-09-30 10:52 | HOMEO2EVAL ---
Evaluation was performed at [facility] Home Oxygen Evaluation RC: Home Oxygen (O2) Evaluation Start: 09/30/21 10:47 Freq: ONCE Status: Active Protocol: RPE Activity Type Activity Date Activity User E-Sign Co-Sign Detail Recorded Client Recorded Date Recorded By Document 09/30/21 10:15 PK [email or web address] 09/30/21 10:52 PK Document 09/30/21 10:20 PK [email or web address] 09/30/21 10:52 PK Document 09/30/21 10:25 [facility] [email or web address] 09/30/21 10:52 [facility] Document 09/30/21 10:30 [facility] [email or web address] 09/30/21 10:52 [facility] 09/30/21 09/30/21 09/30/21 10:15 10:20 10:25 Home O2 Evaluation Test Phase Resting Exercise Exercise Oxygen Delivery Room Air Room Air Nasal Cannula Oxygen Flow Rate (L/min) 2 Pulse Oximetry (90-100 %) 94 86 L 94 Pulse Rate (60-100 beats/min) 88 93 93 Activity Tolerance Good Good Rating of Perceived Dyspnea (PD) +2 Mild, Some Difficulty, Noticeable to the Observer Rate of Perceived Exertion (PE) 9 Very light Ambulation Distance (feet) 400 Treatment Charges O2 Evaluation - Outpatient 09/30/21 10:30 Home O2 Evaluation Test Phase Resting Oxygen Delivery Room Air Oxygen Flow Rate (L/min) Pulse Oximetry (90-100 %) 95 Pulse Rate (60-100 beats/min) 89 Activity Tolerance Rating of Perceived Dyspnea (PD) Rate of Perceived Exertion (PE) Ambulation Distance (feet) Treatment Charges
--- NOTE | 2021-09-30 10:52 | HOMEO2EVAL ---
Evaluation was performed at [facility] Home Oxygen Evaluation RC: Home Oxygen (O2) Evaluation Start: 09/30/21 10:47 Freq: ONCE Status: Active Protocol: RPE Activity Type Activity Date Activity User E-Sign Co-Sign Detail Recorded Client Recorded Date Recorded By Document 09/30/21 10:15 PK [email or web address] 09/30/21 10:52 PK Document 09/30/21 10:20 PK [email or web address] 09/30/21 10:52 PK Document 09/30/21 10:25 [facility] [email or web address] 09/30/21 10:52 [facility] Document 09/30/21 10:30 [facility] [email or web address] 09/30/21 10:52 [facility] 09/30/21 09/30/21 09/30/21 10:15 10:20 10:25 Home O2 Evaluation Test Phase Resting Exercise Exercise Oxygen Delivery Room Air Room Air Nasal Cannula Oxygen Flow Rate (L/min) 2 Pulse Oximetry (90-100 %) 94 86 L 94 Pulse Rate (60-100 beats/min) 88 93 93 Activity Tolerance Good Good Rating of Perceived Dyspnea (PD) +2 Mild, Some Difficulty, Noticeable to the Observer Rate of Perceived Exertion (PE) 9 Very light Ambulation Distance (feet) 400 Treatment Charges O2 Evaluation - Outpatient 09/30/21 10:30 Home O2 Evaluation Test Phase Resting Oxygen Delivery Room Air Oxygen Flow Rate (L/min) Pulse Oximetry (90-100 %) 95 Pulse Rate (60-100 beats/min) 89 Activity Tolerance Rating of Perceived Dyspnea (PD) Rate of Perceived Exertion (PE) Ambulation Distance (feet) Treatment Charges
--- NOTE | 2021-10-01 10:36 | WPDPFTINT ---
PFT Procedure Performed PFT Procedure Performed Spirometry with Pre/Post Bronchodilator Plethysmography (Lung Vol) Diffusing Cap (DLCO) Flow Vol Loop PFT Interpretation Lung volumes were measured with the body plethysmography method. The diminished across the board lung volumes are indicative of restrictive respiratory disease. Spirometry showed diminished expiratory flow rates and a normal FEV1 to FVC ratio of 72%, also consistent with restrictive respiratory disease. Following administration of a bronchodilator there was no significant increase in expiratory flow rates. Lung diffusion capacity is severely reduced at 37% predicted. The flow volume is consistent with restrictive respiratory disease. Impression: Moderately severe restrictive respiratory disease. Severely reduced lung diffusion capacity.
== END 2021-09-30 10:06 | disposition home or self-care (01) ==
LOC: ANHPFT 10:08
PROVIDERS: PCP Internal Medicine; Visit Provider Internal Medicine Critical Care Medicine
DX: R06.02 Shortness of breath (principal); J84.9 Interstitial pulmonary disease, unspecified; R94.2 Abnormal results of pulmonary function studies
CPT/HCPCS: 94060; 94618; 94726; 94729

== ENCOUNTER 2021-12-22 13:42 | Outpatient (CLI) | payer MEDICARE, SELFPAY ==
--- NOTE | ~2021-12-22 | XR_ITS ---
XR chest 2V 12/22/2021 14:21 Indication: Cough. Interstitial lung disease. Procedure: PA and lateral views of the chest Comparison: Comparison to multiple prior studies sequentially, with oldest reviewed study dated 03/2016. Findings: There is developing coarse peripheral interstitial lung changes, consistent with pulmonary fibrosis. There is honeycombing in the lung bases. Cardiomegaly. No significant pleural effusion or p neumothorax. Impression: 1: Significant progression of coarse interstitial lung disease bilaterally, consistent with developin g fibrosis. Reviewed, dictated and finalized at location B. [employer] REPRESENTATIVES Impression: 1: Significant progression of coarse interstitial lung disease bilaterally, con sistent with developing fibrosis.
[2021-12-22 14:20] LABS: Basophils Absolute Auto 0.1 K/mm3 (0.0-0.1); Basophils Percent Auto 0.6 % (0.2-1.2); Eosinophils Absolute Auto 0.3 K/mm3 (0-0.3); Eosinophils Percent Auto 2.4 % (0-4.4); Hematocrit 39.7 % (37.0-47.0); Hemoglobin 13.4 g/dL (12.0-15.0); Immature Granulocyte Absolute 0.17 K/mm3 (0.00-0.031); Immature Granulocyte Percent A 1.4 % (0-0.5); Lymphocytes Absolute Auto 3.05 K/mm3 (0.9-3.2); Lymphocytes Percent Auto 24.9 % (18.3-44.2); Mean Corpuscular HGB Conc 33.8 g/dl (32-36); Mean Corpuscular Hemoglobin 29.2 pg (26-34); Mean Corpuscular Volume 86.5 fl (80-100); Mean Platelet Volume 9.5 fl (7.4-10.4); Monocytes Percent Auto 7.7 % (2.6-8.5); Neutrophils Absolute Auto 7.7 K/mm3 (1.3-6.7); Platelet Count Result 278 k/mm3 (150-375); Red Blood Count 4.59 M/mm3 (4.2-5.4); Red Cell Distribution Width 14.8 % (11.5-14.5); White Blood Count 12.3 K/mm3 (4.5-10.0)
[2021-12-22 14:38] LABS: Atypical Lymphocytes Present; Platelet Estimate Adequate (Adequate)
[2021-12-22 14:54] LABS: Anion Gap 9 mmol/L (8-16); Blood Urea Nitrogen 17 mg/dL (7-17); Calcium 8.7 mg/dL (8.4-10.2); Carbon Dioxide 31 mmol/L (22-30); Chloride 89 mmol/L (98-107); Estimated Glomerular Filt Rate > 60; Glucose 243 mg/dL (65-110); Sodium 129 mmol/L (137-145)
== END 2021-12-22 13:43 | disposition home or self-care (01) ==
LOC: ANHLAB 13:49
PROVIDERS: PCP Internal Medicine; Visit Provider Internal Medicine
DX: J84.9 Interstitial pulmonary disease, unspecified (principal); R53.83 Other fatigue; Z79.899 Other long term (current) drug therapy; R05.9 Cough, unspecified
CPT/HCPCS: 36415; 71046; 80048; 85025

== ENCOUNTER → 2022-11-11 11:25 | Outpatient (CLI) | payer MEDICARE, SELFPAY ==
--- NOTE | ~2022-11-11 | CT_ITS ---
EXAMINATION: CT brain wo con DATE: 11/11/2022 11:51 INDICATION: Other symptoms and signs involving cognitive functions. TECHNIQUE: Computed tomography (CT) of the head was performed without intravenous contrast. The mA wa s adjusted according to patient size. Iterative reconstruction technique was employed. The dose-lengt h product was 599.57 mGy-cm. COMPARISON: None FINDINGS: There are scattered areas of low attenuation in the cerebral white matter. There is no intr acranial hemorrhage, acute infarction, or abnormal intracranial mass lesion. The ventricles are john l in size. There are likely changes of ocular lens replacement surgeries. There is mild mucosal thick ening in the paranasal sinuses. There are likely changes of ocular lens replacement surgeries. There are bilateral otomastoid effusions. IMPRESSION: 1. Moderate nonspecific cerebral white matter disease, which likely represents chronic small vessel i schemic disease. 2. Bilateral otomastoid effusions. Reviewed, dictated and finalized at location A. [facility] IMPRESSION: 1. Moderate nonspecific cerebral white matter disease, which likely represents chronic small vessel ischemic disease. 2. Bilateral otomastoid effusions.
== END ==
PROVIDERS: PCP Internal Medicine; Visit Provider Internal Medicine
DX: R90.82 White matter disease, unspecified (principal); H74.8X3 Other specified disorders of middle ear and mastoid, bilateral
CPT/HCPCS: 70450

== ENCOUNTER 2023-08-24 09:58 | Emergency (ER) | payer MEDICARE, SELFPAY ==
[2023-08-24] VITALS (13 sets, daily range): BP systolic 123–155; BP diastolic 54–88; PULSE 88–103; RESP 17–27; TEMP 37; O2SAT 90–99
[2023-08-24 10:30] LABS: Basophils Absolute Auto 0.1 K/mm3 (0.0-0.1); Basophils Percent Auto 0.4 % (0.2-1.2); Eosinophils Absolute Auto 0.3 K/mm3 (0-0.3); Eosinophils Percent Auto 2.1 % (0-4.4); Hematocrit 34.8 % (37.0-47.0); Immature Granulocyte Percent A 1.4 % (0-0.5); Lymphocytes Absolute Auto 1.32 K/mm3 (0.9-3.2); Lymphocytes Percent Auto 9.5 % (18.3-44.2); Mean Corpuscular HGB Conc 31.6 g/dl (32-36); Mean Corpuscular Hemoglobin 28.2 pg (26-34); Mean Corpuscular Volume 89.2 fl (80-100); Mean Platelet Volume 9.1 fl (7.4-10.4); Monocytes Absolute Auto 0.8 K/mm3 (0.1-0.6); Monocytes Percent Auto 5.6 % (2.6-8.5); Neutrophils Absolute Auto 11.2 K/mm3 (1.3-6.7); Platelet Count Result 309 k/mm3 (150-375); Red Cell Distribution Width 13.2 % (11.5-14.5); White Blood Count 13.9 K/mm3 (4.5-10.0)
[2023-08-24 10:47] LABS: Alanine Aminotransferase 16 U/L (6-35); Albumin Level 4.1 g/dL (3.5-5.1); Alkaline Phosphatase 61 U/L (38-126); Anion Gap 9 mmol/L (8-16); Aspartate Amino Transferase 21 U/L (14-36); Bilirubin,Total 0.8 mg/dL (0.2-1.3); Blood Urea Nitrogen 12 mg/dL (7-17); Calcium 8.5 mg/dL (8.4-10.2); Carbon Dioxide 35 mmol/L (22-30); Chloride 83 mmol/L (98-107); Estimated CRCL calculation 55 ml/min; Estimated Glomerular Filt Rate > 60; Glucose 264 mg/dL (65-110); Potassium 4.1 mmol/L (3.4-5.0); Sodium 127 mmol/L (137-145)
[2023-08-24 10:55] LABS: Appearance Urine Clear (Clear); Bacteria Urine 4+ /hpf; Bilirubin Urine Negative (Negative); Blood Urine Negative (Negative); Color Urine Yellow (Yellow); Glucose Urine UA 1+ mg/dL (Negative); Ketones Urine Negative (Negative); Leukocyte Esterase Ur 2+ LEU/UL (Negative); Nitrate Urine Positive (Negative); Non Pathogenic Casts 0-2; Protein Urine 1+ mg/dL (Negative); RBC Urine 0-2 /hpf (0-2); Squamous Epithelial Cell Urine None seen /hpf (Few); WBC Urine 51-100 /hpf; pH Urine 7.5 (5.0-9.0)
[2023-08-24 10:58] LABS: Add Urine Microscopic? YES
[2023-08-24] MEDS: NITROFURANTOIN MONOHYD MACROCR 100 MG CAP PO (11:47)
--- NOTE | 2023-08-24 16:39 | ED.FEMALEGU ---
HPI - Female Genitourinary General Chief complaint: Urogenital-Female Stated complaint: ?UTI Time Seen by Provider: 08/24/23 10:09 History of Present Illness HPI Narrative: Patient presenting with possible hematuria, patient is denying any complaints, she has no pain anywhere, her drafter electromechanical yesterday noticed blood in her urine in the morning, which then became less bloody as the day went on, and this morning her daughter who took her to the bathroom also noticed some pinkish urine which has also improved. Did not notice any blood in her stool. Related Data Home Medications Medication Instructions Recorded Confirmed cholecalciferol (vitamin D3) 25 25 mcg PO DAILY 11/08/22 05/26/23 mcg (1,000 unit) capsule Allergies Allergy/AdvReac Type Severity Reaction Status Date / Time celecoxib [From Celebrex] AdvReac Mild Abdominal Verified 08/24/23 10:06 Pain ibuprofen AdvReac Unknown Swelling Verified 08/24/23 10:06 Penicillins AdvReac Unknown Swelling Verified 08/24/23 10:06 Sulfa (Sulfonamide AdvReac Unknown Swelling Verified 08/24/23 10:06 Antibiotics) Review of Systems Review of Systems: CONST: No fever. HEENT: No sore throat C/V: No chest pain RESP: No cough GI: No abdominal pain : Hematuria without flank pain M/S: No joint pain. SKIN: No rash. NEURO: [No headache or focal numbness or weakness] PSYCH: [No depression] [facility] Past Medical History Medical History Acute pain of both knees Arthritis Benign essential hypertension BMI 28.0-28.9,adult BMI 30.0-30.9,adult BMI 31.0-31.9,adult Cervicalgia Chronic cough Chronic pain of right hand Cognitive changes Congested ear Cough Degenerative joint disease of hand, right Degenerative joint disease of left hand Diarrhea DJD (degenerative joint disease), multiple sites DM type 2 (diabetes mellitus, type 2) SCHNEIDER (dyspnea on exertion) Dysphagia Elevated temperature Elevated WBCs Encounter for Medicare annual wellness exam Encounter for routine adult health examination with abnormal findings Encounter for routine adult health examination without abnormal findings Fatigue Follow up Hearing loss History of IBS Hyperlipidemia Hyperlipidemia Hypersomnia Hyponatremia Hypothyroidism (acquired) Interstitial lung disease Iron deficiency anemia Leukocytosis Nausea Neck stiffness On prison drug therapy Opacity of lung on imaging study Pre-diabetes Pulmonary nodules Sinus drainage SOB (shortness of breath) Swelling of right hand Vitamin D deficiency Wrist pain Family History Family History Mother Family history of malignant neoplasm Family history of malignant neoplasm of stomach Sibling Family history of malignant neoplasm of breast in first degree relative Father Family history of heart disease in male family member before age 55 Hypertension Depression Social History Social History Smoking status: Former smoker Tobacco type: cigarettes Second hand tobacco smoke exposure: Yes Smoking end date: 10/31/76 Alcohol intake: never Substance use: never Substance use type: does not use Lack of Transportation: No Lack of Food: Never True Current Housing: I Have Housing Concerned About Future Housing: No Difficulty Paying Gas/Electric Bills: No Difficulty Paying for Meds: No Currently Unemployed: No Education: Associate Degree Difficulty w/ Childcare or Family Care: No Living arrangements: with family Gender identity (if verbalized by the patient): Female Spiritual care concerns: No Exam Narrative: EXAMINATION OF ORGAN SYSTEMS/BODY AREAS: Constitutional: Vital signs per nursing GENERAL:[No acute distress, non-toxic appearing.] HEAD: Normal with no signs of head trauma. EYES: EOMI, conjunctiva normal ENT: Hearing grossly intact
== END 2023-08-24 12:08 | disposition home or self-care (01) ==
PROVIDERS: Emergency Provider Emergency Medicine; PCP Internal Medicine
DX: N39.0 Urinary tract infection, site not specified (principal); I10 Essential (primary) hypertension; E11.9 Type 2 diabetes mellitus without complications; E78.5 Hyperlipidemia, unspecified; E03.9 Hypothyroidism, unspecified; E55.9 Vitamin D deficiency, unspecified; J84.9 Interstitial pulmonary disease, unspecified; D50.9 Iron deficiency anemia, unspecified; K58.9 Irritable bowel syndrome, unspecified; M19.042 Primary osteoarthritis, left hand; M19.041 Primary osteoarthritis, right hand; Z87.891 Personal history of nicotine dependence; Z79.84 Long term (current) use of oral hypoglycemic drugs
CPT/HCPCS: 36415; 80053; 81001; 85025; 87077; 87086; 87186; 99283; A9270